=== PATIENT | male | born 1955 | race Caucasian/White ===

== ENCOUNTER 2016-06-30 10:52 | Emergency (ER) | payer OTHER ==
[2016-06-30 11:41] VITALS: BP 151/91
--- NOTE | 2016-06-30 12:05 | UC ---
Lower Extremity/Ankle HPI - HPI Summary HPI Summary: 61 year old male with complaints of left ankle pain and swelling since last evening. States he slipped on a ramp to his shed, twisting his ankle. He is able to bear partial weight but it causes increased pain. He took Ibuprofen this am and is currently 4/10 pain obvious swelling at lateral left ankle - History of Current Complaint Chief Complaint: UCLowerExtremity Stated Complaint: LEFT ANKLE PAIN Time Seen by Provider: 06/30/16 11:55 Hx Obtained From: Patient Onset/Duration: Gradual Onset, Lasting Days - 1, Still Present Severity Initially: Moderate Severity Currently: Mild Pain Scale Used: 0-10 Numeric - 4 Aggravating Factor(s): Standing, Ambulation Alleviating Factor(s): Rest, Elevation Able to Bear Weight: Yes - partial - Risk Factors Gout Risk Factors: Age Over 40, Male DVT Risk Factors: Negative Septic Arthritis Risk Factor: Negative - Allergies/Home Medications Allergies/Adverse Reactions: Allergies Allergy/AdvReac Type Severity Reaction Status Date / Time No Known Allergies Allergy Verified 06/30/16 11:37 Home Medications: Home Medications Ibuprofen [Ibuprofen 200 MG] 600 mg PO PRN 06/30/16 [History] Simvastatin TAB(NF) [Zocor(NF)] 20 mg PO DAILY 06/30/16 [History Confirmed 06/30] PMH/Surg Hx/FS Hx/Imm Hx Previously Healthy: Yes Endocrine History Of: Denies: Diabetes Cardiovascular History Of: Denies: Cardiac Disorders Respiratory History Of: Denies: Asthma - Surgical History Surgical History: Yes Surgery Procedure, Year, and Place: R ankle fx repair, R knee - Family History Known Family History: Positive: Hypertension Negative: Diabetes - Social History Occupation: Employed Full-time Lives: With Family Alcohol Use: Occasionally Substance Use Type: None Smoking Status (MU): Current Every Day Smoker Type: Cigars Have You Smoked in the Last Year: Yes Review of Systems Constitutional: Negative Skin: Negative Eyes: Negative ENT: Negative Respiratory: Negative Cardiovascular: Negative Gastrointestinal: Negative Genitourinary: Negative Motor: Decreased ROM - left ankle due to acute pain Neurovascular: Negative Musculoskeletal: Arthralgia - left ankle Neurological: Negative Psychological: Negative All Other Systems Reviewed And Are Negative: Yes Physical Exam Triage Information Reviewed: Yes Appearance: Well-Appearing, Well-Nourished, Pain Distress - sitting with left ankle elavated Vital Signs: Initial Vital Signs Temp 98.1 F 06/30/16 11:30 Pulse 88 06/30/16 11:30 Resp 16 06/30/16 11:30 BP 151/91 06/30/16 11:30 Pulse Ox 96 06/30/16 11:30 Vital Signs Reviewed: Yes Eyes: Positive: Conjunctiva Clear. Negative: Discharge ENT: Positive: Hearing grossly normal. Negative: Nasal congestion Neck: Positive: Supple, Nontender Respiratory: Positive: Lungs clear, Normal breath sounds Cardiovascular: Positive: RRR, No Murmur Musculoskeletal: Positive: Strength Limited @ - unable to bear full weight due to acute pain, ROM Limited @ - left ankle due to acute pain, Edema @ - left lateral ankle. good pedal pulses. good senation to light touch throughout the left leg and ankle. No obvious deformity Neurological: Positive: Alert, Muscle Tone Normal Psychological: Positive: Age Appropriate Behavior - pleasant and cooperative Skin: Negative: rashes, breakdown Lower Extremity Course/Dx - Course Course Of Treatment: xray of left ankle. Immobilized with posterior short-leg splint. CMS to left foot intact. follow up plan - Differential Dx/Diagnosis Differential Diagnosis/HQI/PQRI: Contusion, Fracture (Closed), Sprain Provider Diagnoses: fracture left distal fibular malleolus Discharge - Discharge Plan Condition: Stable Disposition: HOME Prescriptions: HYDROcodone/ACETAMIN 5-325 MG* [[place] 5-325 TAB*] 1 tab PO Q4H PRN #10 tab MDD 6 tabs PRN Reason: Severe Pain HYDROcodone/ACETAMIN 5-325 MG* [[place] 5-325 TAB*] 1 tab PO Q4H PRN #10 tab MDD 6 PRN Reason: Pain Patient Education Materials: Hydrocodone/Acetaminophen (By mouth), Leg Fracture (ED), Crutch Instructions (ED) Referrals: Alejandro Walters MD [Primary Care Provider] - Tez Becker MD [Medical Doctor] - 5 Days
--- NOTE | 2016-06-30 12:51 | RAD ---
INDICATION: Lateral ankle pain and swelling after a slip and fall injury COMPARISON: None. TECHNIQUE: 3 views of the left ankle were obtained. FINDINGS: There is a minimally displaced oblique fracture involving the left fibular malleolus. There is no pathologic widening of the ankle mortise. The remaining visualized bones are intact and properly aligned. IMPRESSION: MINIMALLY DISPLACED OBLIQUE FRACTURE THROUGH THE LEFT FIBULAR MALLEOLUS.
--- NOTE | 2016-06-30 13:10 | UC ---
Progress - Progress Note Progress Note: Dr Ferreira would not accept Ashlyn Gomes's RX for hydrocodone. I prescribed [place] 5/325mg 1 po q 4 hrs prn MDD 6 #10. I called [facility] and cancelled any possible RX for hydrocodone that might go through under Ashlyn Gomes. I spoke with Bernice Bobby at [facility] and she will fill only one Rx for hydrocodone. #10 tabs.
== END 2016-06-30 13:33 | disposition home or self-care (01) ==
LOC: UCCORT 10:52
DX: I10 Essential (primary) hypertension (principal); S82.62XA Displaced fracture of lateral malleolus of left fibula, initial encounter for closed fracture; X50.9XXA Other and unspecified overexertion or strenuous movements or postures, initial encounter; F17.210 Nicotine dependence, cigarettes, uncomplicated
CPT/HCPCS: 99213; G0463

== ENCOUNTER → 2016-10-07 10:17 | Day surgery (SDC) | payer OTHER ==
[~2016-10-07 10:17] MED LIST: Atropine 1MG/ML INJ* 1 ML VIAL ONE; Buffered Lidocaine 1% SYRIN* 3 ML/SYR SYRINGE INTRADERM ONE; Bupivacaine 0.5% SDV PF* 30 ML VIAL ONE; Chloroprocaine 2%* 20 ML VIAL ONE; Dexamethasone IV* 4 MG/ML 1 ML (4 MG) IV SLOW PU ONE; Dexamethasone IV* 4 MG/ML 1 ML (4 MG) ONE; DiMENhydriNATE IV* 50 MG/ML VIAL IV PUSH PRN; Famotidine IV* 10 MG/ML 2 ML (20 mg) IV ONE; Famotidine IV* 10 MG/ML 2 ML (20 mg) ONE; HYDROcodone/ACETAMIN 5-325 MG* 1 TAB ONE; Ketorolac INJ* 30 MG/ML 1 ML VIAL ONE; Midazolam* 1 MG/ML 5 ML VIAL (5 MG) ONE; Ondansetron INJ* 2 MG/ML VIAL IV PRN; Ondansetron INJ* 2 MG/ML VIAL ONE; Propofol* 10 MG/ML 20 ML BTL IV PUSH ONE; ceFAZolin 2 GM PREMIX(*) 2 GM/50 ML BAG IVPB ONE; fentaNYL* 50 MCG/ML 2 ML VIAL (100 MCG VIAL) IV PRN; fentaNYL* 50 MCG/ML 2 ML VIAL (100 MCG VIAL) ONE; oxyCODONE/Acetamin 5/325 MG* TAB PO PRN
[2016-10-07 14:36] VITALS: BP 149/93
--- NOTE | 2016-10-08 13:26 | OP ---
DATE OF OPERATION: 10/07/16 - [facility] DATE OF : 59 SURGEON: Aly Gomes MD PROCESS CONTROL MANAGER: Yeny Graf PA-C ANESTHESIOLOGIST: Mario Sanabria MD ANESTHESIA: Spinal PRE-OP DIAGNOSIS: Nonunion, left distal fibular fracture. POST-OP DIAGNOSIS: Nonunion, left distal fibular fracture. OPERATIVE PROCEDURE: Open reduction internal fixation, left fibular fracture with tibial bone graft. DESCRIPTION OF PROCEDURE: The patient was taken to the operating room where a longitudinal incision was made over the distal fibula. We opened up along the lateral and posterior aspect of the distal fibula to take down the fibular fracture. We freshened up the bone surfaces with a small power bur. Proximally , at Gerdy's tubercle, a 3-cm incision was made obliquely. We opened up the lateral cortex and harvested cancellous bone. This fresh cancellous autograft was placed along the fibular fracture, which was then fixed with a one-third tubular plate along the posterolateral side. Posterior anterior screws were used through the plate to hold the fracture firmly. We then placed some cancellous allograft chips into the proximal tibia defect closing the periosteum with 2-0 Vicryl sutures and diana for the skin there. Distal fibula, we closed with 2-0 Vicryl sutures and diana as well as a compression dressing and plaster splint. [id number]/[facility] #: [id number] MTDD
--- NOTE | 2016-10-08 18:01 | RAD ---
CPT II Codes: 6045F INDICATION: Right ankle fixation TECHNIQUE: Intraoperative fluoroscopy was provided during plate and screw fixation of the right ankle. FINDINGS: A single spot film in the AP view partially visualized is a plate and screw fixator overlying the distal fibula. Fluoroscopy time: 4 seconds IMPRESSION: As above.
== END | disposition home or self-care (01) ==
LOC: OR 10:17
PROVIDERS: ATTEND Orthopaedic Surgery
DX: S82.62XK Displaced fracture of lateral malleolus of left fibula, subsequent encounter for closed fracture with nonunion (principal); X58.XXXD Exposure to other specified factors, subsequent encounter; Y92.9 Unspecified place or not applicable
CPT/HCPCS: 76000; C1713; C1776; J0461; J0690; J1100; J1885; J2250; J2400; J2405; J2704; J3010

== ENCOUNTER 2017-12-06 21:26 | Emergency (ER) | payer OTHER ==
--- NOTE | 2017-12-06 21:45 | UC ---
Skin Complaint HPI - HPI Summary HPI Summary: patient fell off patio and fell over the grill. pain and swelling right lateral eye and forehead. gait unsteady, slurring words, unable to follow commands to complete ocular exam. - History of Current Complaint Chief Complaint: UCHeadInjury Time Seen by Provider: 12/06/17 21:38 Stated Complaint: HEAD INJURY Hx Obtained From: Patient, Family/Sandstone Inspector Repairer Onset/Duration: Sudden Onset Timing: Constant Onset Severity: Moderate Current Severity: Moderate Pain Intensity: 1 Location: Diffuse - right side of forehead, and lateral right eye Character: Pain Aggravating Factor(s): Touch Alleviating Factor(s): Nothing Associated Signs & Symptoms: Positive: Rash - "road rash" right side of face - Allergy/Home Medications Allergies/Adverse Reactions: Allergies Allergy/AdvReac Type Severity Reaction Status Date / Time No Known Allergies Allergy Verified 10/07/16 10:33 Review of Systems Constitutional: Negative Skin: Negative, Other - road rash right side of face Eyes: Negative ENT: Negative Respiratory: Negative Cardiovascular: Negative Gastrointestinal: Negative Genitourinary: Negative Motor: Negative Neurovascular: Negative Musculoskeletal: Negative Neurological: Negative Psychological: Negative Is Patient Immunocompromised?: No All Other Systems Reviewed And Are Negative: Yes PMH/Surg Hx/FS Hx/Imm Hx Previously Healthy: No Endocrine History: Dyslipidemia - Surgical History Surgical History: Yes Surgery Procedure, Year, and Place: R ankle fx repair 1991, R knee arthroscopic - Family History Known Family History: Positive: Hypertension Negative: Diabetes - Social History Occupation: Employed Full-time Lives: With Family Alcohol Use: Daily - "a few margueritias" Substance Use Type: None Smoking Status (MU): Former Smoker Type: Cigars Have You Smoked in the Last Year: Yes When Did the Patient Quit Smoking/Using Tobacco: 25 years ago, does smoke an occassional cigar Physical Exam Triage Information Reviewed: Yes Appearance: Well-Appearing, Well-Nourished, Pain Distress Vital Signs: Initial Vital Signs Temp 97.6 F 12/06/17 21:30 Pulse 77 12/06/17 21:30 Resp 22 12/06/17 21:30 BP 126/83 12/06/17 21:30 Pulse Ox 95 12/06/17 21:30 Vital Signs Reviewed: Yes Eye Exam: Normal Eyes: Positive: Other: - pupils not reactive but equal, unable to follow instruction for eomi assessment, and nystagmus ENT Exam: Normal ENT: Positive: Normal ENT inspection, Hearing grossly normal, Pharynx normal, TMs normal, Uvula midline. Negative: Tonsillar swelling, Tonsillar exudate, Trismus, Muffled voice, Hoarse voice, Dental tenderness, Sinus tenderness Dental Exam: Normal Neck exam: Normal Neck: Positive: Supple, Nontender, No Lymphadenopathy Respiratory Exam: Normal Respiratory: Positive: Chest non-tender, Lungs clear, Normal breath sounds, No respiratory distress, No accessory muscle use Cardiovascular Exam: Normal Cardiovascular: Positive: RRR, No Murmur, Pulses Normal, Brisk Capillary Refill Abdominal Exam: Normal Abdomen Description: Positive: Nontender, No Organomegaly, Soft Musculoskeletal Exam: Normal Musculoskeletal: Positive: Strength Intact, ROM Intact, No Edema Neurological Exam: Other Neurological: Positive: Other: - gait unsteady, speech slurred difficultly follow direction Psychological Exam: Other Psychological: Positive: Abnormal Response To Family Skin: Positive: Other - facial road rash from fall Course/Dx - Course Course Of Treatment: patient is refusing ambulance, (we questions wifes abilty to drive due to alcohol use as well) will have both sign AMA and have apolice officer assess their safety to drive - Diagnoses Provider Diagnoses: alcohol intoxication, head injury - Physician Notification/Consults Time Discussed With Above Provider: 22:10 - kevin brito CORSET FITTER Instructed by Provider To: Transfer Discharge - Sign-Out/Discharge Documenting (check all that apply): Discharge/Admit/Transfer - Discharge Plan Condition: Fair Disposition: TRANS HIGHER LVL OF CARE FAC Referrals: Alejandro Walters MD [Primary Care Provider] - - Billing Disposition and Condition Condition: FAIR Disposition: Trans Higher Lvl of Care Fac
[2017-12-06 22:23] VITALS: BP 130/82
== END 2017-12-06 22:25 | disposition short-term general hospital (02) ==
LOC: UCCORT 21:26
DX: S09.90XA Unspecified injury of head, initial encounter (principal); F10.129 Alcohol abuse with intoxication, unspecified; Z87.891 Personal history of nicotine dependence; W17.89XA Other fall from one level to another, initial encounter; Y92.9 Unspecified place or not applicable
CPT/HCPCS: 99213; G0463